=== PATIENT | female | born 1940 | race Caucasian/White ===

== ENCOUNTER 2017-06-11 06:43 | Day surgery (SDC) | payer OTHER ==
[2017-06-11] MEDS ORDERED: LIDOCAINE 1% 20 ML MDV ID ONE (07:34)
[2017-06-11] MEDS ORDERED: VERSED ONE (09:03)
[2017-06-11] MEDS ORDERED: DIPRIVAN 20 ML VIAL IVP ONE (09:03)
[2017-06-11 12:47] VITALS: BP 121/56; TEMP 97
--- NOTE | 2017-06-12 09:41 | OP ---
INDICATIONS FOR PROCEDURE: 77 year old female presents for colonoscopy exam. She was diagnosed with Crohn's in 2005, she is currently asymptomatic. She presents for surveillance exam. MEDICATIONS: SEE ANESTHESIA NOTES. PROCEDURE: COLONOSCOPY SNARE POLYPECTOMY, SURVEILLANCE BIOPSIES. REPORT: The risks, benefits, alternatives and limitations were discussed in detail with the patient. Informed consent was obtained. After adequate sedation was achieved, a digital rectal exam revealed good tone, no masses. The colonoscope was introduced into the rectum and advanced under direct visual guidance to the cecum. The cecum was identified by the appendiceal orifice and IC valve. I was able to intubate the terminal ileum and exam this for 10 cm. This appeared unremarkable. I then slowly withdrew the scope in circumferential manner and examined the mucosa quite carefully. I looked on the proximal distal sides of the folds and flexures as best as possible. I was able to retroflex the scope in the right colon and left colon to increase visualization. In the distal part of the hepatic flexure there was a small 5mm slightly raise polyp I removed this by snare technique. In the distal sigmoid there was 2 polyps about 4-5mm in size both slightly raised and both removed by snare technique. The smaller one was destroyed and the slightly larger one was removed and retrieved. A few diverticuli were noted in the sigmoid colon and no other abnormalities were noted included on retroflex view of the anal canal. The prep was good. I did obtain surveillance biopsies scattered throughout the colon. The obtained the four corner biopsies from the cecum, midtransverse colon, descend colon, sigmoid and rectum. No evidence of Crohn's disease was noted on this exam. The patient tolerated the procedure well with stable vital signs and pulse oximetry throughout. The withdraw time was 15 minutes and 50 seconds. IMPRESSION: 1. Three small polyps removed as above 2. Otherwise unremarkable colonoscopy exam including the terminal ileum RECOMMENDATIONS: 1. Await pathology results and if everything is benign as expected I recommend a repeat colonoscopy examination again in three years if she is clinically well or sooner if there are signs or symptoms that indicated otherwise. 2. We will see her in the office as needed and in one year for a checkup CC: Dr. Ra SCHILLING
== END 2017-06-11 10:30 | disposition home or self-care (01) ==
LOC: SURG 06:43
PROVIDERS: ATTEND Internal Medicine Gastroenterology
DX: Z09 Encounter for follow-up examination after completed treatment for conditions other than malignant neoplasm (principal); K50.90 Crohn's disease, unspecified, without complications; D12.7 Benign neoplasm of rectosigmoid junction; D12.0 Benign neoplasm of cecum; D12.4 Benign neoplasm of descending colon; D12.3 Benign neoplasm of transverse colon; D12.5 Benign neoplasm of sigmoid colon

== ENCOUNTER 2017-10-23 10:51 | Outpatient (CLI) | payer OTHER | END 2017-10-23 10:52 | disposition home or self-care (01) | LOC: RAD 10:51 | PROVIDERS: ATTEND Internal Medicine | DX: Z12.31 Encounter for screening mammogram for malignant neoplasm of breast (principal) | CPT/HCPCS: 77067 ==

== ENCOUNTER 2019-04-06 10:20 | Outpatient (CLI) ==
--- NOTE | 2019-04-08 09:45 | MAMMO ---
EXAM: Digital screening mammogram with Tomosynthesis HISTORY: Screening COMPARISON: 10/23/2017 FINDINGS: Digital MLO and CC views of the right and left breast were performed. Tomosynthesis was performed. Computer aided detection utilized. There are scattered fibroglandular densities. Biopsy clip in the left breast. Benign bilateral calcifications. There is no evidence for mass, asymmetry, distortion, or suspicious calcifications in either breast. IMPRESSION: 1. No evidence of malignancy in the right or left breast. 2. Annual screening mammogram is recommended in one year. BIRADS category 2, benign
== END 2019-04-06 10:21 | disposition home or self-care (01) ==
LOC: RAD 10:20
PROVIDERS: ATTEND Internal Medicine
DX: Z12.31 Encounter for screening mammogram for malignant neoplasm of breast (principal)